=== PATIENT | male | born 1980 | race Caucasian/White ===

== ENCOUNTER 2017-06-01 18:44 | Emergency (ER) | payer SELFPAY ==
[2017-06-01 19:48] LABS: Urine Blood 1+ (NEG); Urine Glucose NEGATIVE (NEG); Urine Protein 1+ (NEG); Urine pH 7.5 (5.0-7.0)
[2017-06-01] MEDS ORDERED: KETOROLAC 30 MG/ML INJ ONE (19:48)
[2017-06-01] MEDS ORDERED: NA CHLORIDE 0.9% 1,000 ML ONE (19:48)
--- NOTE | 2017-06-01 20:25 | RAD REPORT ---
EXAM DESCRIPTION: CT - Stone Protocol - 06/01/2017 7:58 pm CLINICAL HISTORY: Abdominal pain, flank pain COMPARISON: None. TECHNIQUE: Axial 5 mm thick images were obtained without oral or IV contrast. The [id number] span s the entirety of the system including uppermost abdomen and lung bases. All CT scans are performed using dose optimization technique as appropriate and may include automated exposure control or mA/KV adjustment according to patient size. FINDINGS: No hydronephrosis is present and no obstructing ureteral calculi. No suspicious renal mass es. Isodense masses and pyelonephritis are not excluded on a stone protocol CT scan. Urinary bladder is mostly contracted. No bladder calculi seen. Prostate gland and seminal vesicles within normal limi ts. Imaged portions of the liver, spleen and pancreas show no suspicious findings on non-contrast imaging . The gallbladder is contracted. No biliary tree dilatation. No significant adrenal finding. No suspicious bowel findings. Appendix is normal. No mass or bulky lymphadenopathy. Fat only umbilical hernia is seen in the patient has fat only right inguinal hernia. No free air, free fluid or inflammatory stranding. No significant bony abnormality. IMPRESSION: No hydronephrosis, obstructing calculi or acute finding. Isodense masses and pyelonephritis are not excluded on stone protocol technique. Remainder the study shows no acute or suspicious finding.
[2017-06-01 20:33] LABS: Absolute Lymphocytes (CBC) 1.9 K/uL (0.7-4.9); Absolute Monocytes 0.8 K/uL (0.1-1.3); Absolute Neutrophil 6.7 K/uL (1.8-8.0); Basophils % 0.7 % (0-1.3); Eosinophils % 1.8 % (0-4.4); Hematocrit 44.1 % (39.6-49.0); Lymphocytes % 20.2 % (15.3-44.8); MCH 29.4 pg (27.0-35.0); MCV 85.5 fL (80-100); MPV 8.5 fL (7.6-11.3); Monocytes % 7.9 % (3.3-12.3); RBC Red Blood Cell Count 5.16 M/uL (4.33-5.43)
[2017-06-01 20:43] LABS: Potassium 3.5 mEq/L (3.6-5.0)
--- NOTE | 2017-06-01 20:50 | EDPHYS ---
Physician Documentation [facility] Name: Anthony Collado Age: 36 yrs Sex: Male : 1980 Arrival Date: 06/01/2017 Time: 18:46 Bed 17 Private MD: ED Physician Brendon Colorado HPI: 06/01 20:29 This 36 yrs old Male presents to ER via Ambulatory with complaints of Side gs Pain. 20:29 The patient complains of pain in the left mid back. The pain radiates to the abdomen. gs Onset: The symptoms/episode began/occurred acutely, just prior to arrival. Modifying factors: The symptoms are alleviated by nothing. the symptoms are aggravated by nothing. Associated signs and symptoms: Pertinent positives: nausea, Pertinent negatives: pain radiating to the lower extremities. Severity of pain: At its worst the pain was incapacitating in the emergency department the pain has improved markedly. The patient has not experienced similar symptoms in the past. Historical: - Allergies: 18:57 No Known Allergies; - Home Meds: 18:57 Adderall XR 20 mg Oral cp24 1 cap once daily [Active]; hj - PMHx: 18:57 ADD/ADHD; - PSHx: 18:57 zackery anal surgery; hj - Immunization history:: Adult Immunizations up to date. - Social history:: Smoking status: Patient/guardian denies using tobacco. ROS: 20:29 Cardiovascular: Negative for chest pain. gs 20:29 Respiratory: Negative for pleurisy, shortness of breath. 20:29 All other systems are negative. Exam: 20:29 Head/Face: Normocephalic, atraumatic. Eyes: Pupils equal round and reactive to light, gs extra-ocular motions intact. Lids and lashes normal. Conjunctiva and sclera are non-icteric and not injected. Cornea within normal limits. Periorbital areas with no swelling, redness, or edema. ENT: Nares patent. No nasal discharge, no septal abnormalities noted. Tympanic membranes are normal and external auditory canals are clear. Oropharynx with no redness, swelling, or masses, exudates, or evidence of obstruction, uvula midline. Mucous membranes moist. Neck: Trachea midline, no thyromegaly or masses palpated, and no cervical lymphadenopathy. Supple, full range of motion without nuchal rigidity, or vertebral point tenderness. No Meningismus. Chest/axilla: Normal chest wall appearance and motion. Nontender with no deformity. No lesions are appreciated. Cardiovascular: Regular rate and rhythm with a normal S1 and S2. No gallops, murmurs, or rubs. Normal PMI, no JVD. No pulse deficits. Respiratory: Lungs have equal breath sounds bilaterally, clear to auscultation and percussion. No rales, rhonchi or wheezes noted. No increased work of breathing, no retractions or nasal flaring. Abdomen/GI: Soft, non-tender, with normal bowel sounds. No distension or tympany. No guarding or rebound. No evidence of tenderness throughout. Back: No spinal tenderness. No costovertebral tenderness. Full range of motion. Skin: Warm, dry with normal turgor. Normal color with no rashes, no lesions, and no evidence of cellulitis. MS/ Extremity: Pulses equal, no cyanosis. Neurovascular intact. Full, normal range of motion. Neuro: Awake and alert, GCS 15, oriented to person, place, time, and situation. Cranial nerves II-XII grossly intact. Motor strength 5/5 in all extremities. Sensory grossly intact. Cerebellar exam normal. Normal gait. 20:29 Constitutional: The patient appears alert, awake. Vital Signs: 18:57 BP 137 / 88; Pulse 69; Resp 18; Temp 97.5(O); Pulse Ox 100% on R/A; Weight 81.65 kg; hj Height 5 ft. 10 in. (177.80 cm); Pain 10/10; 20:53 BP 121 / 81; Pulse 62; Resp 18 S; Pulse Ox 100% on R/A; ea 18:57 Body Mass Index 25.83 (81.65 kg, 177.80 cm) MDM: 19:42 Patient medically screened. gs 20:29 Differential diagnosis: nephrolithiasis, pyelonephritis, UTI. Data reviewed: vital gs signs, nurses notes, and as a result, I will. Response to treatment: the patient's symptoms have resolved after treatment, and as a result, I will discharge patient. 06/01 19:23 Order name: Urine Dipstick--Ancillary (enter results); Complete Time: 20:28 rg2 06/01 19:45 Order name: Basic Metabolic Panel; Complete Time: 20:50 gs 06/01 19:45 Order name: CBC with Diff; Complete Time: 20:50 06/01 19:45 Order name: CT Stone Protocol; Complete Time: 20:28 06/01 19:45 Order name: IV Saline Lock; Complete Time: 20:51 06/01 19:45 Order name: Labs collected and sent; Complete Time: 20:51 gs Administered Medications: 20:16 Drug: TORadol 15 mg Route: IVP; Site: right antecubital; ea 21:06 Follow up: Response: No adverse reaction; Pain is decreased ea 20:16 Drug: NS 0.9% 1000 ml Route: IV; Rate: 1 bolus; Site: right antecubital; ea 21:43 Follow up: Response: No adverse reaction; IV Intake: 1000ml ea 21:45 Follow up: Response: No adverse reaction; IV Status: Completed infusion; IV Intake: ea 1000ml Disposition: 06/01/17 20:49 Discharged to Home. Impression: Abdominal and pelvic pain, Hematuria. - Condition is Stable. - Discharge Instructions: Abdominal Pain, Adult, [id number]. - Medication Reconciliation Form, Thank You Letter, Antibiotic Education, Prescription Opioid Use form. - Follow up: Ham Titus MD; When: 5 - 6 days; Reason: Re-evaluation by your physician. Signatures: Dispatcher [employer] Hans Melgoza, RN Britni Clarke RN RN ea Starr, Gregory, MD MD
--- NOTE | 2017-06-01 20:50 | ER ---
Nurse's Notes [facility] Name: Anthony Collado Age: 36 yrs Sex: Male : 1980 Arrival Date: 06/01/2017 Time: 18:46 Bed 17 Private MD: Diagnosis: Abdominal and pelvic pain;Hematuria Presentation: 06/01 18:54 Presenting complaint: Patient states: about 30 mins ago, i have pain on my L lower side hj of my stomach, denies radiating pain; denies hx of kidney stones; denies nausea and vomiting; denies diarrhea; denies chest pain;. Transition of care: patient was not received from another setting of care. Onset of symptoms was June 01, 2017. Care prior to arrival: None. 18:54 Method Of Arrival: Ambulatory 18:54 Acuity: LAMBERTO 3 hj Triage Assessment: 18:57 General: Appears in no apparent distress. uncomfortable, Behavior is calm, cooperative, hj appropriate for age. Pain: Complains of pain in left upper quadrant. Historical: - Allergies: 18:57 No Known Allergies; hj - Home Meds: 18:57 Adderall XR 20 mg Oral cp24 1 cap once daily [Active]; hj - PMHx: 18:57 ADD/ADHD; hj - PSHx: 18:57 zackery anal surgery; hj - Immunization history:: Adult Immunizations up to date. - Social history:: Smoking status: Patient/guardian denies using tobacco. Screenin:30 Abuse screen: Denies threats or abuse. Nutritional screening: No deficits noted. la1 Tuberculosis screening: No symptoms or risk factors identified. Fall Risk None identified. Assessment: 19:27 General: Behavior is calm, cooperative, appropriate for age. General: Pt reports he had la1 excruciating pain to his left side and when he was in triage all of a sudden it went away. . Pain: Denies pain. Neuro: Level of Consciousness is awake, alert, obeys commands, Oriented to person, place, time, situation. Cardiovascular: Patient's skin is warm and dry. Respiratory: Airway is patent Respiratory effort is even, unlabored, Respiratory pattern is regular, symmetrical. GI: Abdomen is non-distended, Bowel sounds present X 4 quads. Abd is soft and non tender X 4 quads. : Denies burning with urination. EENT: No signs and/or symptoms were reported regarding the EENT system. Derm: Skin is pink, warm \T\ dry. Musculoskeletal: Range of motion: intact in all extremities. 20:53 Reassessment: Patient and/or family updated on plan of care and expected duration. Pain ea level reassessed. Patient is alert, oriented x 3, equal unlabored respirations, skin warm/dry/pink. 21:02 Reassessment: Patient and/or family updated on plan of care and expected duration. Pain ea level reassessed. Patient is alert, oriented x 3, equal unlabored respirations, skin warm/dry/pink. awaiting for fluids to complete. 21:44 Reassessment: Patient and/or family updated on plan of care and expected duration. Pain ea level reassessed. Patient is alert, oriented x 3, equal unlabored respirations, skin warm/dry/pink. Discharge instructions given to patient, verbalized the understanding of instruction. Vital Signs: 18:57 BP 137 / 88; Pulse 69; Resp 18; Temp 97.5(O); Pulse Ox 100% on R/A; Weight 81.65 kg; hj Height 5 ft. 10 in. (177.80 cm); Pain 10/10; 20:53 BP 121 / 81; Pulse 62; Resp 18 S; Pulse Ox 100% on R/A; ea 18:57 Body Mass Index 25.83 (81.65 kg, 177.80 cm) ED Course: 18:46 Patient arrived in ED. tw3 18:56 Triage completed. hj 18:57 Arm band placed on left wrist. hj 19:09 Brendon Colorado MD is Attending Physician. gs 19:11 Octavio Pace RN is Primary Nurse. la1 19:31 Patient has correct armband on for positive identification. ea 19:59 CT Stone Protocol In Process Unspecified. EDMS 20:33 Ham Titus MD is Referral Physician. gs 20:54 No provider procedures requiring assistance completed. ea 21:44 IV discontinued, intact, bleeding controlled, No redness/swelling at site. Pressure ea dressing applied. Administered Medications: 20:16 Drug: TORadol 15 mg Route: IVP; Site: right antecubital; ea 21:06 Follow up: Response: No adverse reaction; Pain is decreased ea 20:16 Drug: NS 0.9% 1000 ml Route: IV; Rate: 1 bolus; Site: right antecubital; ea 21:43 Follow up: Response: No adverse reaction; IV Intake: 1000ml ea 21:45 Follow up: Response: No adverse reaction; IV Status: Completed infusion; IV Intake: ea 1000ml Intake: 21:43 IV: 1000ml; Total: 1000ml. ea 21:45 IV: 1000ml; Total: 2000ml. ea Outcome: 20:49 Discharge ordered by . gs 21:43 Discharged to home ambulatory, with friend. ea 21:43 Condition: improved 21:43 Discharge instructions given to patient, Instructed on discharge instructions, follow up and referral plans. Demonstrated understanding of instructions, follow-up care. 21:45 Patient left the ED. ea Signatures: Dispatcher [employer] EDMS Octavio Pace RN RN la1 Hans Dalal RN RN Siobhan Lepe tw3 Britni Walsh RN RN Brendon Panda MD MD gs Corrections: (The following items were deleted from the chart) 19:00 18:57 Pulse 69bpm; Resp 18bpm; Pulse Ox 100% RA; Temp 97.5F Oral; 81.65 kg; Height 5 hj ft. 10 in.; BMI: 25.8; Pain 10/10; hj
== END 2017-06-01 21:45 | disposition home or self-care (01) ==
LOC: ER 18:44
DX: R31.9 Hematuria, unspecified (principal); F90.9 Attention-deficit hyperactivity disorder, unspecified type
CPT/HCPCS: 36415; 74176; 76377; 80048; 81003; 85025; 96361; 96374; 99283; J7030

== ENCOUNTER 2023-01-24 23:39 | Emergency (ER) | payer SELFPAY ==
--- OUTSIDE RECORDS SUMMARY | 2023-01-24 23:41 | XMS REPORT | Continuity of Care Document ---
Author Name Unknown Address [address] [facility] [address] [place] [address] [facility] Address [address] [place] [address] Care Team Providers Care Principal Statistical Scientist Name Role Phone Pcp, Patient Does Not Have A Primary Care Physic woo Piter Payton MD A Attending Clinician [phone] PITER PAYTON A Attending Clinician Unavaila ble Doctor Unassigned, [place] Attending Clinician U navailable Payers Payer Name Policy Type Policy Number Effective Date Expirati on Date Source Problems Condition Name Condition Details Condition Category Status Onset Date Resolution Date Last Treatment Date Treating Clinician Comments Source Tinea versicolor Tinea versicolor Disease Active 04-09 00:00: 00 [facility] Tinea pedis Tinea pedis Disease Active 04-09 00:00: 00 [facility] Mouth ulcers Mouth ulcers Disease Active 04-09 00:00: 00 [facility] BRBPR (bright red blood per rectum) BRBPR (bright red blood per rectum) Disease Active 04-09 00:00: 00 [facility] Hyperactiv ity Hyperactiv ity Disease Active 04-09 00:00: 00 [facility] Degenerati ve lumbar disc Degenerati ve lumbar disc Disease Active 04-07 00:00: 00 [facility] Difficulty concentrat ing Difficulty concentrat ing Disease Active 02-17 00:00: 00 Overview: Formattin g of this note might be different from the original. Never officiall y diagnosed with ADHD. Taking Adderall since 2013.04/07: Referred to Psychiatr y. [facility] Depression Depression Disease Active [place]: Formattin g of this note might be different from the original. Battled depressio n off and on whole life. [facility] Allergies, Adverse Reactions, Alerts Allergy Name Allergy Type Status Severity Reaction(s) Onset Date Inactive Date Treating Clinician Comments Source NO KNOWN ALLERGIE S Drug Class Active [facility] Social History Social Habit Start Date Stop Date Quantity Comments [facility] current (pack per day) - Reported 2020-04-09 00:00:00 2020-04-09 00:00:00 [facility] Cigarette pack-years 2020-04-09 00:00:00 2020-04-09 00:00:00 [facility] Tobacco use and exposure 2020-04-09 00:00:00 2020-04-09 00:00:00 Never used [facility] Alcohol intake 2020-04-09 00:00:00 2020-04-09 00:00:00 Ex-drinker (finding) [facility] Exposure to SARS-CoV-2 (event) 2020-03-08 00:00:00 2020-04-07 13:50:00 Not sure [facility] Alcohol Comment 2020-04-07 00:00:00 2020-04-07 00:00:00 I drink on occasion but not enough to measure weekly [facility] History of Social function 2020-04-07 00:00:00 2020-04-07 00:00:00 [facility] History of tobacco use 1994-09-17 00:00:00 2012-07-18 00:00:00 Cigarette Smoker [facility] Sex Assigned At 1980 00:00:00 1980 00:00:00 [facility] Smoking Status Start Date Stop Date Source Tobacco smoking consumption unknown [facility] Former smoker 2020-04-09 00:00:00 2020-04-09 00:00:00 [facility] Medications Ordered Medication Name Filled Medication Name Start Date Stop Date Current Medication? Ordering Clinician Indication Dosage Frequency Signature (SIG) Comments Components Source econazole nitrate 1 % cream 04-07 00:00: 00 Yes [id number] Apply to area(s) 2 (two) times daily. [facility] econazole nitrate 1 % cream 04-07 00:00: 00 Yes [id number] Apply to area(s) 2 (two) times daily. [facility] econazole nitrate 1 % cream 04-07 00:00: 00 Yes [id number] Apply to area(s) 2 (two) times daily. [facility] dextroamphe tamine-amph etamine (ADDERALL) 30 mg tablet 02-17 00:00: 00 Yes [facility] dextroamphe tamine-amph etamine (ADDERALL) 30 mg tablet 02-17 00:00: 00 Yes [facility] dextroamphe tamine-amph etamine (ADDERALL) 30 mg tablet 02-17 00:00: 00 Yes [facility] Vital Signs Vital Name Observation Time Observation Value Comments S ource Systolic blood pressure 2020-04-07 19:56:00 110 mm[Hg] [facility] Diastolic blood pressure 2020-04-07 19:56:00 80 mm[Hg] [facility] Heart rate 2020-04-07 19:56:00 102 /min [facility] Body temperature 2020-04-07 19:56:00 37.11 Jesi [facility] Body height 2020-04-07 19:56:00 177.8 cm [facility] Body weight 2020-04-07 19:56:00 90.447 kg [facility] BMI 2020-04-07 19:56:00 28.61 kg/m2 [facility] Procedures Procedure Date / Time Performed Performing Clinicia n Source HSV 1&2, VZV BY PCR 2020-04-07 21:04:00 Sunil Payton [facility] Encounters Start Date/Time End Date/Time Encounter Type Admission Type Attending Clinicians Care Facility Care Department Encounter ID Source 2020-04-07 13:38:13 2020-04-07 15:03:04 Office Visit Piter Payton [facility] Office [address] [id number] [facility] 2020-04-07 13:30:00 2020-04-07 13:30:00 Outpatient R PITER PAYTON [facility] [id number] [facility] 2020-03-07 00:00:00 2020-03-07 00:00:00 Patient Secure Msg Doctor Unassigned, [place] [facility] [id number] [facility] Results Test Description Test Time Test Comments Results Result Co mments Source [facility] VZV BY [id number] 18:55:00* Test Item Value Reference Range Interpretation Comme nts Herpes simplex virus type 1 Nucleic Acid (test code = 8372830615) Negative Negative Herpes simplex virus type 2 Nucleic Acid (test code = 3357680798) Negative Negative Varicella zoster virus Nucle ic Acid (test code = 02495-5) Negative Negative Lab Interpretation (test cod e = 43195-8) Normal [facility], VZV BY [id number] 18:55:00* Test Item Value Reference Range Interpretation Comme nts Herpes simplex virus type 1 Nucleic Acid (test code = 9084638605) Negative Negative Herpes simplex virus type 2 Nucleic Acid (test code = 4364572233) Negative Negative Varicella zoster virus Nucle ic Acid (test code = 42202-1) Negative Negative Lab Interpretation (test cod e = 67534-8) Normal [facility]
[2023-01-25] MEDS ORDERED: DIAZEPAM 5 MG TABLET ONE (00:43)
[2023-01-25] MEDS ORDERED: dexAMETHasone 10 MG/ML VIAL ONE (00:44)
[2023-01-25] MEDS ORDERED: ONDANSETRON 4 MG/2 ML VIAL ONE (00:44)
[2023-01-25] MEDS ORDERED: KETOROLAC 30 MG/ML INJ ONE (00:44)
[2023-01-25] MEDS ORDERED: NA CHLORIDE 0.9% 1,000 ML ONE (00:44)
[2023-01-25] MEDS ORDERED: MORPHINE 4 MG/ML SYR ONE (00:44)
[2023-01-25 00:49] LABS: Absolute Lymphocytes (CBC) 1.9 K/uL (0.7-4.9); Hematocrit 47.9 % (39.6-49.0); Lymphocytes % 14.3 % (15.3-44.8); MCV 86.2 fL (80-100); MPV 8.7 fL (7.6-11.3); Platelets 324 thou/uL (152-406); RBC Red Blood Cell Count 5.55 M/uL (4.33-5.43)
[2023-01-25 01:05] LABS: Albumin 4.1 g/dL (3.4-5.0); Bilirubin Total 2.2 mg/dL (0.2-1.0); Potassium 3.7 mEq/L (3.5-5.1); Protein, Total 8.3 g/dL (6.4-8.2)
[2023-01-25 01:46] LABS: Specific Gravity > 1.030 (1.005-1.030); Urine Bacteria None Seen /HPF (<20); Urine Bilirubin NEGATIVE (Negative); Urine Blood Negative (Negative); Urine Clarity Clear (Clear); Urine Color Yellow (Yellow); Urine Glucose NEGATIVE (Negative); Urine Mucus Slight /HPF (None Seen); Urine Protein 1+ (Negative); Urine RBC <5 /HPF (None Seen); Urine Urobilinogen Normal (Normal); Urine pH 5.5 (5.0-7.0)
--- NOTE | 2023-01-25 01:57 | EDPHYS ---
Physician Documentation [facility] Name: Anthony Collado Age: 42 yrs Sex: Male : 1980 Arrival Date: 01/24/2023 Time: 23:39 Bed 11 Private MD: ED Physician Massimo Ramos HPI: 01/25 00:54 This 42 yrs old Male presents to ER via EMS with complaints of Back Pain, Leg gisela Pain. 00:54 The patient presents with pain that is acute, and decreased range of motion. The gisela symptoms are located in the low back, lumbar area, left low back and right low back. Onset: The symptoms/episode began/occurred 3 day(s) ago. The pain radiates to the lumbar area, left low back and right low back. Associated signs and symptoms: The patient has no apparent associated signs or symptoms. The problem was sustained when lifting SNEEZED. Modifying factors: The patient symptoms are alleviated by remaining still, the patient symptoms are aggravated by any movement, bending, movement. Severity of symptoms: At their worst the symptoms were moderate, severe, in the emergency department the symptoms are unchanged. The patient has experienced similar episodes in the past, multiple times. Historical: - Allergies: 01/24 23:47 No Known Allergies; pf1 - PMHx: 23:47 ADD/ADHD; Chronic back pain; degenerative disc disease; pf1 - PSHx: 23:47 None; pf1 - Immunization history:: Adult Immunizations not up to date, Client reports having NOT received the Covid vaccine. Last tetanus immunization: > 10 years ago Flu vaccine is not up to date. - Social history:: Smoking status: Reported history of juuling and/or vaping. Patient uses alcohol, but reports only rare drinking. street drugs, marijuana. - Family history:: not pertinent. ROS: 01/25 00:54 Constitutional: Negative for fever, chills, and weight loss, Eyes: Negative for injury, gisela pain, redness, and discharge, ENT: Negative for injury, pain, and discharge, Neck: Negative for injury, pain, and swelling, Cardiovascular: Negative for chest pain, palpitations, and edema, Respiratory: Negative for shortness of breath, cough, wheezing, and pleuritic chest pain, Abdomen/GI: Negative for abdominal pain, nausea, vomiting, diarrhea, and constipation, Back: Negative for injury and pain, : Negative for injury, bleeding, discharge, and swelling, MS/Extremity: Negative for injury and deformity, Skin: Negative for injury, rash, and discoloration, Psych: Negative for depression, anxiety, suicide ideation, homicidal ideation, and hallucinations, Allergy/Immunology: Negative for hives, rash, and allergies, Endocrine: Negative for neck swelling, polydipsia, polyuria, polyphagia, and marked weight changes, Hematologic/Lymphatic: Negative for swollen nodes, abnormal bleeding, and unusual bruising, Neuro: Positive for gait disturbance, Exam: 00:54 Constitutional: This is a well developed, well nourished patient who is awake, alert, gisela and in no acute distress. Head/Face: Normocephalic, atraumatic. Eyes: Pupils equal round and reactive to light, extra-ocular motions intact. Lids and lashes normal. Conjunctiva and sclera are non-icteric and not injected. Cornea within normal limits. Periorbital areas with no swelling, redness, or edema. ENT: Nares patent. No nasal discharge, no septal abnormalities noted. Tympanic membranes are normal and external auditory canals are clear. Oropharynx with no redness, swelling, or masses, exudates, or evidence of obstruction, uvula midline. Mucous membranes moist. Neck: Trachea midline, no thyromegaly or masses palpated, and no cervical lymphadenopathy. Supple, full range of motion without nuchal rigidity, or vertebral point tenderness. No Meningismus. Chest/axilla: Normal chest wall appearance and motion. Nontender with no deformity. No lesions are appreciated. Cardiovascular: Regular rate and rhythm with a normal S1 and S2. No gallops, murmurs, or rubs. Normal PMI, no JVD. No pulse deficits. Respiratory: Lungs have equal breath sounds bilaterally, clear to auscultation and percussion. No rales, rhonchi or wheezes noted. No increased work of breathing, no retractions or nasal flaring. Abdomen/GI: Soft, non-tender, with normal bowel sounds. No distension or tympany. No guarding or rebound. No evidence of tenderness throughout. Male : Normal genitalia with no discharge or lesions. Skin: Warm, dry with normal turgor. Normal color with no rashes, no lesions, and no evidence of cellulitis. MS/ Extremity: Pulses equal, no cyanosis. Neurovascular intact. Full, normal range of motion. Neuro: Awake and alert, GCS 15, oriented to person, place, time, and situation. Cranial nerves II-XII grossly intact. Motor strength 5/5 in all extremities. Sensory grossly intact. Cerebellar exam normal. Normal gait. Psych: Awake, alert, with orientation to person, place and time. Behavior, mood, and affect are within normal limits. 00:54 Back: pain, that is moderate, ROM is painful, normal spinal alignment noted, no deformity, CVA tenderness, is absent, muscle spasm, is appreciated in the left low back, left mid back, right mid back and right low back, Vital Signs: 01/24 23:42 BP 141 / 99; Pulse 56; Resp 16; Temp 97.3; Pulse Ox 100% on R/A; Weight 86.18 kg; pf1 Height 5 ft. 10 in. ; Pain 3/10; 01/25 00:30 BP 115 / 81; Pulse 62; Resp 16; Pulse Ox 100% on R/A; pf1 01:30 BP 111 / 73; Pulse 59; Resp 16; Pulse Ox 99% ; pf1 01/24 23:42 Body Mass Index 27.26 (86.18 kg, 177.8 cm) pf1 01/24 23:42 Pain Scale: Adult pf1 MDM: 01/24 23:55 Patient medically screened. gisela 01/25 00:58 Differential diagnosis: Fatigue Fracture Hydronephrosis Osteomyelitis Osteoporosis gisela Perforated Ulcer Pyelonephritis Renal Infarction sickle cell crisis, spinal injury, sprain, Ureterolithiasis vertebral fracture. Data reviewed: vital signs, nurses notes, lab test result(s), radiologic studies, CT scan. Consideration of Admission/Observation Escalation of care including admission/observation considered. I considered the following discharge prescriptions or medication management in the emergency department Medications were administered in the Emergency Department. See MAR. Independent interpretation of the following test(s) in the Emergency Department CT Scan: My interpretation is CT LUMBAR. Test considered but Not performed: MRI: NO MRI SPINE. Care significantly affected by the following chronic conditions: ADD, BACK PAIN. Counseling: I had a detailed discussion with the patient and/or guardian regarding the historical points, exam findings, and any diagnostic results supporting the discharge/admit diagnosis, lab results, radiology results, the need for outpatient follow up, for definitive care, a family practitioner, a neurologist. 01/24 23:57 Order name: CBC with Diff [facility] 01/24 23:57 Order name: Comprehensive Metabolic Panel [facility] 01/24 23:57 Order name: Urinalysis w/ reflexes [facility] 01/24 23:57 Order name: CT Lumbar Spine Wo Con gisela Administered Medications: 00:46 Drug: Decadron - Dexamethasone IVP 10 mg IVP once Route: IVP; Site: right forearm; pf1 01:40 Follow up: Response: No adverse reaction; Marked relief of symptoms pf1 00:47 Drug: Ketorolac IVP 30 mg IVP once Route: IVP; Site: right forearm; pf1 01:40 Follow up: Response: No adverse reaction; Marked relief of symptoms; Pain is decreased pf1 00:47 Drug: Diazepam PO 10 mg PO once Route: PO; pf1 01:40 Follow up: Response: No adverse reaction; Marked relief of symptoms pf1 00:47 Drug: morphine IVP or IV 4 mg IVP once over 4 mins Route: IVP; Infused Over: 4 mins; pf1 Site: right forearm; 01:40 Follow up: Response: No adverse reaction; Marked relief of symptoms; Pain is decreased; pf1 RASS: Alert and Calm (0) 00:47 Drug: Ondansetron IVP 4 mg IVP once; over 2 minutes Route: IVP; Site: right forearm; pf1 01:40 Follow up: Response: No adverse reaction; Marked relief of symptoms pf1 00:48 Drug: NS 0.9% IV 1000 ml IV at 1 bolus Per protocol; 1000 mL bolus Route: IV; Rate: 1 pf1 bolus; Site: right forearm; 01:40 Follow up: Response: No adverse reaction; Marked relief of symptoms; IV Status: pf1 Completed infusion; IV Intake: 1000ml Disposition Summary: 01/25/23 01:56 Discharge Ordered Notes: Location: Home gisela Problem: new gisela Symptoms: have improved gisela Condition: Stable gisela Diagnosis - Low back pain gisela - Sciatica gisela - Sciatica, left side gisela - Other intervertebral disc displacement, lumbar region - LARGE POSTERIOR DISC gisela EXTRUSION, L4-5, MODERATER CANAL NARROWING Followup: gisela - With: Private Physician - When: 2 - 3 days - Reason: Recheck today's complaints, Continuance of care, Re-evaluation by your physician Followup: gisela - With: Lee Plaza MD - When: 2 - 3 days - Reason: Recheck today's complaints, Re-evaluation by your physician Followup: [facility] - With: Cory Goetz MD - When: 2 - 3 days - Reason: Recheck today's complaints, Re-evaluation by your physician Discharge Instructions: - Discharge Summary Sheet gisela - Acute Back Pain, Adult gisela - Chronic Back Pain gisela - Herniated Disk gisela - Musculoskeletal Pain gisela - Sciatica gisela - Chronic Back Pain, [id number] gisela - Sciatica, [id number] [facility] Forms: - Medication Reconciliation Form [facility] - Thank You Letter [facility] - Antibiotic Education [facility] - Prescription Opioid Use [facility] - Patient Portal Instructions [facility] - Leadership Thank You Letter [facility] Prescriptions: - acetaminophen-codeine 300-30 mg Oral tablet - take 2 tablet ORAL route every 6 hours; 20 tablet; Refills: 0, Product [facility] Selection Permitted - dexamethasone 2 mg Oral tablet - take 1 tablet ORAL route every 12 hours; 10 tablet; Refills: 0, Product [facility] Selection Permitted - Diclofenac Sodium 75 mg Oral tablet, delayed release (enteric coated) - take 1 tablet ORAL route 2 times per day; 20 tablet; Refills: 0, Product [facility] Selection Permitted - Cyclobenzaprine 5 mg Oral Tablet - take 1 tablet ORAL route 3 times per day As needed; 15 tablet; Refills: 0, [facility] Product Selection Permitted Signatures: Dispatcher [employer] Massimo Lopez MD MD cha Finley, Pamala, RN RN pf1
--- NOTE | 2023-01-25 01:57 | ER ---
Nurse's Notes [facility] Name: Anthony Collado Age: 42 yrs Sex: Male : 1980 Arrival Date: 01/24/2023 Time: 23:39 Bed 11 Private MD: Diagnosis: Low back pain;Sciatica;Sciatica, left side;Other intervertebral disc displacement, lumbar region-LARGE POSTERIOR DISC EXTRUSION, L4-5, MODERATER CANAL NARROWING Presentation: 01/24 23:42 Chief complaint: Patient states: back pain with left leg pain of 3 at this time,onset pf1 Friday after sneezing. Patient stated chronic back pain with DDD, follows up with chiropractor every 2 weeks after picking up a potted plant in May 2022. Coronavirus screen: Vaccine status: Patient reports being unvaccinated. Client denies travel out of the [place] in the last 14 days. At this time, the client does not indicate any symptoms associated with coronavirus-19. Ebola Screen: Patient negative for fever greater than or equal to 101.5 degrees Fahrenheit, and additional compatible Ebola Virus Disease symptoms. Initial Sepsis Screen: Does the patient meet any 2 criteria? No. Patient's initial sepsis screen is negative. Does the patient have a suspected source of infection? No. Patient's initial sepsis screen is negative. Risk Assessment: Do you want to hurt yourself or someone else? Patient reports no desire to harm self or others. 23:42 Method Of Arrival: EMS: [facility] pf1 23:42 Acuity: LAMBERTO 3 pf1 Historical: - Allergies: 23:47 No Known Allergies; pf1 - PMHx: 23:47 ADD/ADHD; Chronic back pain; degenerative disc disease; pf1 - PSHx: 23:47 None; pf1 - Immunization history:: Adult Immunizations not up to date, Client reports having NOT received the Covid vaccine. Last tetanus immunization: > 10 years ago Flu vaccine is not up to date. - Social history:: Smoking status: Reported history of juuling and/or vaping. Patient uses alcohol, but reports only rare drinking. street drugs, marijuana. - Family history:: not pertinent. Screenin/09 01:59 [facility] ED Fall Risk Assessment (Adult) History of falling in the last 3 months, pf1 including since admission No falls in past 3 months (0 pts) Confusion or Disorientation No (0 pts) Intoxicated or Sedated No (0 pts) Impaired Gait Yes (1 pt) Mobility Assist Device Used No (0 pt) Altered Elimination No (0 pt) Score/Fall Risk Level 0 - 2 = Low Risk Oriented to surroundings, Maintained a safe environment, Educated pt \T\ family on fall prevention, incl call for assistance when getting out of bed, Assessed \T\ reinforced patient's understanding of fall precautions, Provided non-skid footwear, Hourly rounding (assess needs \T\ fall precautionary measures) done, Used ambulatory aids as needed (educated on \T\ assisted with), Used gait belt as appropriate. Abuse screen: Denies threats or abuse. Nutritional screening: No deficits noted. Tuberculosis screening: No symptoms or risk factors identified. Assessment: 01/24 23:45 General: Appears in no apparent distress. uncomfortable, well groomed, well developed, pf1 Behavior is calm, cooperative, appropriate for age, quiet. 23:45 Pain: Complains of pain in lumbar area and left leg Pain currently is 3 out of 10 on a pf1 pain scale. Neuro: No deficits noted. Level of Consciousness is awake, alert, obeys commands, Oriented to person, place, time, situation. Cardiovascular: No deficits noted. Capillary refill < 3 seconds Patient's skin is warm and dry. Respiratory: No deficits noted. Airway is patent Respiratory effort is even, unlabored, Respiratory pattern is regular, symmetrical. GI: No deficits noted. No signs and/or symptoms were reported involving the gastrointestinal system. : No deficits noted. No signs and/or symptoms were reported regarding the genitourinary system. EENT: No deficits noted. No signs and/or symptoms were reported regarding the EENT system. Derm: No deficits noted. No signs and/or symptoms reported regarding the dermatologic system. Musculoskeletal: Circulation, motion, and sensation intact. Capillary refill < 3 seconds, Range of motion: intact in all extremities, Reports pain in lumbar area and left leg. 01/25 00:30 Reassessment: Patient appears in no apparent distress at this time. Patient and/or pf1 family updated on plan of care and expected duration. Pain level reassessed. Patient is alert, oriented x 3, equal unlabored respirations, skin warm/dry/pink. Patient states symptoms have improved. 01:30 Reassessment: Patient appears in no apparent distress at this time. Patient and/or pf1 family updated on plan of care and expected duration. Pain level reassessed. Patient is alert, oriented x 3, equal unlabored respirations, skin warm/dry/pink. Patient states feeling better. Patient states symptoms have improved. Vital Signs: 01/24 23:42 BP 141 / 99; Pulse 56; Resp 16; Temp 97.3; Pulse Ox 100% on R/A; Weight 86.18 kg; pf1 Height 5 ft. 10 in. ; Pain 3/10; 01/25 00:30 BP 115 / 81; Pulse 62; Resp 16; Pulse Ox 100% on R/A; pf1 01:30 BP 111 / 73; Pulse 59; Resp 16; Pulse Ox 99% ; pf1 01/24 23:42 Body Mass Index 27.26 (86.18 kg, 177.8 cm) pf1 01/24 23:42 Pain Scale: Adult pf1 ED Course: 01/24 23:41 Patient arrived in ED. pf1 23:45 Arm band placed on left wrist. pf1 23:47 Triage completed. pf1 23:55 Massimo Ramos MD is Attending Physician. gisela 01/25 00:25 Inserted saline lock: 20 gauge in right forearm, using aseptic technique. Blood ls5 collected. 00:53 CT Lumbar Spine Wo Con In Process Unspecified. EDMS 01:25 Urinalysis w/ reflexes Sent. pf1 01:53 Lee Plaza MD is Referral Physician. gisela 01:56 Cory Goetz MD is Referral Physician. gisela 01:59 Patient has correct armband on for positive identification. Bed in low position. Call pf1 light in reach. 02:10 No provider procedures requiring assistance completed. IV discontinued, intact, pf1 bleeding controlled, No redness/swelling at site. Pressure dressing applied. 02:10 Provided Education on: prescription and follow up. pf1 Administered Medications: 00:46 Drug: Decadron - Dexamethasone IVP 10 mg IVP once Route: IVP; Site: right forearm; pf1 01:40 Follow up: Response: No adverse reaction; Marked relief of symptoms pf1 00:47 Drug: Ketorolac IVP 30 mg IVP once Route: IVP; Site: right forearm; pf1 01:40 Follow up: Response: No adverse reaction; Marked relief of symptoms; Pain is decreased pf1 00:47 Drug: Diazepam PO 10 mg PO once Route: PO; pf1 01:40 Follow up: Response: No adverse reaction; Marked relief of symptoms pf1 00:47 Drug: morphine IVP or IV 4 mg IVP once over 4 mins Route: IVP; Infused Over: 4 mins; pf1 Site: right forearm; 01:40 Follow up: Response: No adverse reaction; Marked relief of symptoms; Pain is decreased; pf1 RASS: Alert and Calm (0) 00:47 Drug: Ondansetron IVP 4 mg IVP once; over 2 minutes Route: IVP; Site: right forearm; pf1 01:40 Follow up: Response: No adverse reaction; Marked relief of symptoms pf1 00:48 Drug: NS 0.9% IV 1000 ml IV at 1 bolus Per protocol; 1000 mL bolus Route: IV; Rate: 1 pf1 bolus; Site: right forearm; 01:40 Follow up: Response: No adverse reaction; Marked relief of symptoms; IV Status: pf1 Completed infusion; IV Intake: 1000ml Medication: 02:10 VIS not applicable for this client. pf1 Intake: 01:40 IV: 1000ml; Total: 1000ml. pf1 Outcome: 01:56 Discharge ordered by MD. higgins 02:10 Discharged to home via wheelchair, with family, pf1 02:10 Condition: improved 02:10 Discharge instructions given to patient, Instructed on discharge instructions, follow up and referral plans. Demonstrated understanding of instructions, follow-up care, medications, Prescriptions given X 4, 02:10 Patient left the ED. pf1 Signatures: Dispatcher [employer] EDMassimo Moreau MD MD cha Finley, Pamala, RN RN pf1 Scott Red ls5 Corrections: (The following items were deleted from the chart) 02:59 02:18 Patient left the ED. pf1 pf1
[2023-01-25 02:51] VITALS: BP 141/99; TEMP 97.3; O2SAT 100
--- NOTE | 2023-01-27 15:22 | RAD REPORT ---
EXAM DESCRIPTION: CT - Spine Lumbar Wo Con - 01/25/2023 7:23 am CLINICAL HISTORY: Pain;Radiculopathy. COMPARISON: None. TECHNIQUE: CT of the lumbar spine was performed without IV contrast. Axial, coronal, and sagittal re constructions were created and sent to PACS. This exam was performed according to our departmental dose-optimization program, which includes autom ated exposure control, adjustment of the mA and/or kV according to patient size and/or use of iterati ve reconstruction technique. FINDINGS: Bones: No acute osseous abnormality identified. Vertebral body height and alignment is keren ntained. T12-L1: No significant central canal or neuroforaminal stenosis identified. L1-L2: No significant central canal or neuroforaminal stenosis identified. L2-L3: Mild circumferential disc bulge. No significant central canal or neuroforaminal stenosis ident ified. L3-L4: Moderate circumferential disc bulge. Mild bilateral neuroforaminal narrowing due to disc mater ial. No significant central canal stenosis identified. L4-L5: Suspected large posterior disc extrusion in the left para midline region, measuring 1.9 cm in craniocaudal extent. Suspected moderate central canal narrowing at this level. Suspected underlying c ircumferential disc bulge. Moderate left sided and mild right sided neuroforaminal narrowing due to d isc material. L5-S1: Small posterior osteophytes. Prominent circumferential disc bulge. Moderate bilateral neural f oraminal narrowing due to vertebral body osteophytes. No significant central canal stenosis identifie d. Paraspinal soft tissues: No significant abnormality is visualized. IMPRESSION: 1. No acute osseous abnormality identified in the lumbar spine. 2. Suspected large posterior disc extrusion at L4-5 resulting in moderate central canal narrowing. 3. Suspected background circumferential disc bulge at L4-5, with moderate left-sided and mild right -sided neuroforaminal narrowing at this level. 4. Additional multilevel degenerative changes. 5. MRI is more sensitive for evaluation of soft tissue structures and can be obtained if necessary. Electronically signed by: Ester Laurent MD 01/25/2023 01:01 AM MEDICAL CARE EVALUATION SPECIALIST Due to temporary technical issues with the PACS/Fluency reporting system, reports are being signed by the in house radiologist without review as a courtesy to ensure prompt reporting. The interpreting r adiologist is fully responsible for the content of the report.
== END 2023-01-25 02:18 | disposition home or self-care (01) ==
LOC: ER 23:39
DX: M51.16 Intervertebral disc disorders with radiculopathy, lumbar region (principal); M48.061 Spinal stenosis, lumbar region without neurogenic claudication; G89.29 Other chronic pain
CPT/HCPCS: 36415; 72131; 80053; 81001; 85025; 96361; 96374; 96375; 99284; J1100; J2405; J7030

== ENCOUNTER 2023-01-30 16:55 | Emergency (ER) | payer SELFPAY ==
--- OUTSIDE RECORDS SUMMARY | 2023-01-30 16:58 | XMS REPORT | Continuity of Care Document ---
Author Name Unknown Address [address] [facility] [address] [place] [address] [facility] thconnect Address [address] [facility] [place] [address] Care Team Providers Care Photo Lab Manager Name Role Phone Pcp, Patient Does Not Have A Primary Care Physic woo Piter Payton MD A Attending Clinician + [phone] PITER PAYTON Attending Clinician Unavaila ble Doctor Unassigned, [place] Attending Clinician U navailable Payers Payer Name Policy Type Policy Number Effective Date Expirati on Date Source Problems Condition Name Condition Details Condition Category Status Onset Date Resolution Date Last Treatment Date Treating Clinician Comments Source Tinea versicolor Tinea versicolor Disease Active 04-09 00:00: 00 [facility] Tinea pedis Tinea pedis Disease Active 04-09 00:00: 00 [facility] Mouth ulcers Mouth ulcers Disease Active 04-09 00:00: 00 [facility] BRBPR (bright red blood per rectum) BRBPR (bright red blood per rectum) Disease Active 04-09 00:00: 00 [facility] Hyperactiv ity Hyperactiv ity Disease Active 04-09 00:00: 00 [facility] Degenerati ve lumbar disc Degenerati ve lumbar disc Disease Active 04-07 00:00: 00 [facility] Difficulty concentrat ing Difficulty concentrat ing Disease Active 02-17 00:00: 00 Overview: Formattin g of this note might be different from the original. Never officiall y diagnosed with ADHD. Taking Adderall since 2013.04/07: Referred to Psychiatr y. [facility] Depression Depression Disease Active [place]: Formattin g of this note might be different from the original. Battled depressio n off and on whole life. [facility] Allergies, Adverse Reactions, Alerts Allergy Name Allergy Type Status Severity Reaction(s) Onset Date Inactive Date Treating Clinician Comments Source NO KNOWN ALLERGIE S Drug Class Active [facility] Social History Social Habit Start Date Stop Date Quantity Comments Source [facility]ig[facility] smoked current (pack per day) - Reported 2020-04-09 00:00:00 2020-04-09 00:00:00 [facility] Cigarette pack-years 2020-04-09 00:00:00 2020-04-09 00:00:00 [facility] Tobacco use and exposure 2020-04-09 00:00:00 2020-04-09 00:00:[address] [facility] Alcohol intake 2020-04-09 00:00:00 2020-04-09 00:00:00 Ex-drinker (finding) [facility] Exposure to SARS-CoV-2 (event) 2020-03-08 00:00:00 2020-04-07 13:50:[address] [facility] Alcohol Comment 2020-04-07 00:00:00 2020-04-07 00:00:00 I drink on occasion but not enough to measure weekly [facility] History of Social function 2020-04-07 00:00:00 2020-04-07 00:00:00 [facility] History of tobacco use 1994-09-17 00:00:00 2012-07-18 00:00:[address] [facility] Sex Assigned At 1980 00:00:00 1980 00:00:00 [facility] Smoking Status Start Date Stop Date Source Tobacco smoking consumption unknown [facility] Former smoker 2020-04-09 00:00:00 2020-04-09 00:00:00 [facility] Medications Ordered Medication Name Filled Medication Name Start Date Stop Date Current Medication? Ordering Clinician Indication Dosage Frequency Signature (SIG) Comments Components Source econazole nitrate 1 % cream 04-07 00:00: 00 Yes [id number] Apply to area(s) 2 (two) times daily. [facility] econazole nitrate 1 % cream 04-07 00:00: 00 Yes [id number] Apply to area(s) 2 (two) times daily. [facility] econazole nitrate 1 % cream 04-07 00:00: 00 Yes [id number] Apply to area(s) 2 (two) times daily. [facility] dextroamphe tamine-amph etamine (ADDERALL) 30 mg tablet 02-17 00:00: 00 Yes [facility] dextroamphe tamine-amph etamine (ADDERALL) 30 mg tablet 02-17 00:00: 00 Yes [facility] dextroamphe tamine-amph etamine (ADDERALL) 30 mg tablet 02-17 00:00: 00 Yes [facility] Vital Signs Vital Name Observation Time Observation Value Comments S ource Systolic blood pressure 2020-04-07 19:56:00 110 mm[Hg] [facility] Diastolic blood pressure 2020-04-07 19:56:00 80 mm[Hg] [facility] Heart rate 2020-04-07 19:56:00 102 /min [facility] Body temperature 2020-04-07 19:56:[address] [facility] Body height 2020-04-07 19:56:00 177.8 cm [facility] Body weight 2020-04-07 19:56:00 90.447 kg [facility] BMI 2020-04-07 19:56:00 28.61 kg/m2 [facility] Procedures Procedure Date / Time Performed Performing Clinicia n Source HSV 1&2, VZV BY PCR 2020-04-07 21:04:[address] [facility] Encounters Start Date/Time End Date/Time Encounter Type Admission Type Attending Clinicians Care Facility Care Department Encounter ID Source 2020-04-07 13:38:13 2020-04-07 15:03:04 [facility] [id number] [facility] 2020-04-07 13:30:00 2020-04-07 13:30:00 Outpatient R PITER PAYTON [facility] [id number] [facility] 2020-03-07 00:00:00 2020-03-07 00:00:00 Patient Secure Msg Doctor Unassigned, [place] [facility] [id number] [facility] Results Test Description Test Time Test Comments Results Result Co mments Source [facility], VZV BY [id number] 18:55:00* Test Item Value Reference Range Interpretation Comme nts Herpes simplex virus type 1 Nucleic Acid (test code = 7257980496) Negative Negative Herpes simplex virus type 2 Nucleic Acid (test code = 4285366860) Negative Negative Varicella zoster virus Nucle ic Acid (test code = 88630-2) Negative Negative Lab Interpretation (test cod e = 07354-8) Normal [facility]2, VZV BY [id number] 18:55:00* Test Item Value Reference Range Interpretation Comme nts Herpes simplex virus type 1 Nucleic Acid (test code = 4780001997) Negative Negative Herpes simplex virus type 2 Nucleic Acid (test code = 7064815875) Negative Negative Varicella zoster virus Nucle ic Acid (test code = 35394-2) Negative Negative Lab Interpretation (test cod e = 36465-9) Normal [facility]
--- NOTE | 2023-01-30 17:30 | EDPHYS ---
Physician Documentation [facility] Name: Anthony Collado Age: 42 yrs Sex: Male : 1980 Arrival Date: 01/30/2023 Time: 16:55 Bed 17 Private MD: ED Physician Massimo Ramos HPI: 01/30 17:11 This 42 yrs old Male presents to ER via Unassigned with complaints of Low gisela Back Pain. 17:11 The patient presents with pain that is acute, and decreased range of motion. The gisela symptoms are located in the low back. The pain radiates to the lumbar area. The problem was sustained when lifting. Onset: The symptoms/episode began/occurred 3 day(s) ago. Modifying factors: The patient symptoms are alleviated by remaining still, the patient symptoms are aggravated by any movement, walking. Associated signs and symptoms: Pertinent positives: numbness. Severity of symptoms: At their worst the symptoms were severe, in the emergency department the symptoms have improved, mildly. The patient has experienced similar episodes in the past, a few times. Historical: - Allergies: 17:20 No Known Allergies; bp - Home Meds: 17:20 Adderall XR 20 mg Oral cp24 1 cap once daily [Active]; bp - PMHx: 17:20 ADD/ADHD; chronic back pain; Degenerative disc disease; bp - Immunization history:: Adult Immunizations up to date. - Social history:: Smoking status: Patient denies any tobacco usage or history of. - Family history:: not pertinent. ROS: 17:11 Constitutional: Negative for fever, chills, and weight loss, Eyes: Negative for injury, gisela pain, redness, and discharge, ENT: Negative for injury, pain, and discharge, Neck: Negative for injury, pain, and swelling, Cardiovascular: Negative for chest pain, palpitations, and edema, Respiratory: Negative for shortness of breath, cough, wheezing, and pleuritic chest pain, Abdomen/GI: Negative for abdominal pain, nausea, vomiting, diarrhea, and constipation, : Negative for injury, bleeding, discharge, and swelling, MS/Extremity: Negative for injury and deformity, Skin: Negative for injury, rash, and discoloration, Psych: Negative for depression, anxiety, suicide ideation, homicidal ideation, and hallucinations, Allergy/Immunology: Negative for hives, rash, and allergies, Endocrine: Negative for neck swelling, polydipsia, polyuria, polyphagia, and marked weight changes, Hematologic/Lymphatic: Negative for swollen nodes, abnormal bleeding, and unusual bruising, 17:11 Back: Positive for decreased range of motion, pain at rest, pain with movement, of the lumbar area and left low back, Exam: 17:11 Constitutional: This is a well developed, well nourished patient who is awake, alert, gisela and in no acute distress. Head/Face: Normocephalic, atraumatic. Eyes: Pupils equal round and reactive to light, extra-ocular motions intact. Lids and lashes normal. Conjunctiva and sclera are non-icteric and not injected. Cornea within normal limits. Periorbital areas with no swelling, redness, or edema. ENT: Nares patent. No nasal discharge, no septal abnormalities noted. Tympanic membranes are normal and external auditory canals are clear. Oropharynx with no redness, swelling, or masses, exudates, or evidence of obstruction, uvula midline. Mucous membranes moist. Neck: Trachea midline, no thyromegaly or masses palpated, and no cervical lymphadenopathy. Supple, full range of motion without nuchal rigidity, or vertebral point tenderness. No Meningismus. Chest/axilla: Normal chest wall appearance and motion. Nontender with no deformity. No lesions are appreciated. Cardiovascular: Regular rate and rhythm with a normal S1 and S2. No gallops, murmurs, or rubs. Normal PMI, no JVD. No pulse deficits. Respiratory: Lungs have equal breath sounds bilaterally, clear to auscultation and percussion. No rales, rhonchi or wheezes noted. No increased work of breathing, no retractions or nasal flaring. Abdomen/GI: Soft, non-tender, with normal bowel sounds. No distension or tympany. No guarding or rebound. No evidence of tenderness throughout. Male : Normal genitalia with no discharge or lesions. Skin: Warm, dry with normal turgor. Normal color with no rashes, no lesions, and no evidence of cellulitis. MS/ Extremity: Pulses equal, no cyanosis. Neurovascular intact. Full, normal range of motion. Neuro: Awake and alert, GCS 15, oriented to person, place, time, and situation. Cranial nerves II-XII grossly intact. Motor strength 5/5 in all extremities. Sensory grossly intact. Cerebellar exam normal. Normal gait. Psych: Awake, alert, with orientation to person, place and time. Behavior, mood, and affect are within normal limits. 17:11 Back: pain, that is mild, that is moderate, ROM is painful, normal spinal alignment noted, CVA tenderness, is absent, muscle spasm, is appreciated in the left low back, left mid back, right mid back and right low back, Vital Signs: 17:20 BP 121 / 73; Pulse 85; Resp 16; Temp 98; Pulse Ox 99% ; bp 20:55 BP 120 / 80; Pulse 49; Resp 15; Pulse Ox 98% ; bp MDM: 17:02 Patient medically screened. [facility] 17:21 Differential diagnosis: arthritis, strain, sciatica, contusion, Herniated disc. Data [facility] reviewed: vital signs, nurses notes, lab test result(s), radiologic studies, CT scan, MRI. Consideration of Admission/Observation Escalation of care including admission/observation considered. I considered the following discharge prescriptions or medication management in the emergency department Medications were administered in the Emergency Department. See MAR. Independent interpretation of the following test(s) in the Emergency Department MRI: My interpretation is mri , ct review. Test considered but Not performed: EKG: no ekg. Historians other than the Patient: Family Member: mother. Care significantly affected by the following chronic conditions: no hx. Counseling: I had a detailed discussion with the patient and/or guardian regarding the historical points, exam findings, and any diagnostic results supporting the discharge/admit diagnosis, lab results, radiology results, the need to transfer to another facility, for higher level of care, [facility] does not immediately have the required specialist. 01/30 17:10 Order name: CBC with Diff; Complete Time: 18:49 [facility] 01/30 17:10 Order name: Comprehensive Metabolic Panel; Complete Time: 18:49 [facility] 01/30 17:10 Order name: MRI Lumbar Spine wo Con; Complete Time: 18:49 [facility] Administered Medications: 18:00 Drug: Ketorolac IVP 30 mg IVP once Route: IVP; Site: right forearm; bp 20:56 Follow up: Response: No adverse reaction bp 18:00 Drug: Decadron - Dexamethasone IVP 10 mg IVP once Route: IVP; Site: right forearm; bp 20:56 Follow up: Response: No adverse reaction bp 18:00 Drug: fentaNYL (PF) IVP 50 mcg IVP once Route: IVP; Site: right forearm; bp 20:56 Follow up: Response: No adverse reaction bp 18:00 Drug: Ondansetron IVP 4 mg IVP once; over 2 minutes Route: IVP; Site: right forearm; bp 20:56 Follow up: Response: No adverse reaction bp 18:00 Drug: NS 0.9% IV 1000 ml IV at 1 bolus Per protocol; 1000 mL bolus Route: IV; Rate: 1 bp bolus; Site: right forearm; 20:57 Follow up: IV Status: Completed infusion; IV Intake: 1000ml bp 18:00 Drug: Diazepam PO 10 mg PO once Route: PO; bp 20:57 Follow up: Response: No adverse reaction bp 20:56 Drug: HYDROmorphone IVP 1 mg IVP once Route: IVP; Site: right forearm; bp 20:57 Follow up: Response: No adverse reaction bp 20:56 Drug: Ondansetron IVP 4 mg IVP once; over 2 minutes Route: IVP; Site: right forearm; bp 20:57 Follow up: Response: No adverse reaction bp Disposition Summary: 01/30/23 17:30 Transfer Ordered Notes: Transfer Location: [facility] gisela Reason: Higher level of care gisela Condition: Fair gisela Problem: new gisela Symptoms: have worsened gisela Accepting Physician: FADUMO MONROY(01/30/23 20:57) bp Diagnosis - Other intervertebral disc displacement, lumbar region - large posterior disc gisela extrusion, with saddle paresthesia Forms: - Medication Reconciliation Form gisela - SBAR form gisela Signatures: Dispatcher [employer] EDMassimo Moreau MD MD cha Peltier, Brian, RN RN bp Corrections: (The following items were deleted from the chart) 20:19 17:30 to [facility] medicine/neuro gisela gisela 20:57 20:19 FADUMO MONROY cha bp
[2023-01-30] MEDS ORDERED: ONDANSETRON 4 MG/2 ML VIAL ONE ×2 (17:42→20:54)
[2023-01-30] MEDS ORDERED: dexAMETHasone 10 MG/ML VIAL ONE (17:42)
[2023-01-30] MEDS ORDERED: KETOROLAC 30 MG/ML INJ ONE (17:42)
[2023-01-30] MEDS ORDERED: DIAZEPAM 5 MG TABLET ONE (17:43)
[2023-01-30] MEDS ORDERED: FENTANYL CITR 100 MCG/2 ML ONE (17:43)
[2023-01-30] MEDS ORDERED: NA CHLORIDE 0.9% 1,000 ML ONE (17:44)
[2023-01-30 17:46] LABS: Absolute Lymphocytes (CBC) 3.8 K/uL (0.7-4.9); Hematocrit 47.3 % (39.6-49.0); MCV 86.4 fL (80-100); MPV 8.8 fL (7.6-11.3); Platelets 338 thou/uL (152-406); RBC Red Blood Cell Count 5.47 M/uL (4.33-5.43)
[2023-01-30 17:55] LABS: Albumin 3.7 g/dL (3.4-5.0); Bilirubin Total 0.9 mg/dL (0.2-1.0); Potassium 3.9 mEq/L (3.5-5.1); Protein, Total 7.4 g/dL (6.4-8.2)
--- NOTE | 2023-01-30 18:27 | RAD REPORT ---
EXAM DESCRIPTION: MRI - Lumbar Spine Wo Con - 01/30/2023 5:59 pm CLINICAL HISTORY: Numbness COMPARISON: January 25, 2023 TECHNIQUE: Sagittal T1, T2 and STIR weighted sequences were obtained. Axial T1 and T2 sequences were obtained through the lumbar disc levels. FINDINGS: L1-2 is unremarkable Mild spondylosis L2-3 Disc bulge with annular fissure L3-4 27 x 12 x 17 millimeter (cc by AP by trans) disc extrusion L4-5 extends superiorly. There is marked c ompression of the thecal sac. The disc extends to the right and left of the thecal sac. Mild spondylosis L5-S1 with disc thinning. No significant abnormal signal within the bones IMPRESSION: Very large L4-5 disc extrusion which extends superiorly
[2023-01-30] MEDS ORDERED: HYDROMORPHONE HCL 1 MG/ML INJ ONE (20:54)
--- NOTE | 2023-01-30 20:58 | ER ---
Nurse's Notes [facility] Name: Anthony Collado Age: 42 yrs Sex: Male : 1980 Arrival Date: 01/30/2023 Time: 16:55 Bed 17 Private MD: Diagnosis: Other intervertebral disc displacement, lumbar region-large posterior disc extrusion, with saddle paresthesia Presentation: 01/30 17:20 Chief complaint: Patient states: CALLED BACK BY MD FOR EXTRUDING DISC WITH PERINEAL bp PARASTHESIAS. Coronavirus screen: At this time, the client does not indicate any symptoms associated with coronavirus-19. Ebola Screen: No symptoms or risks identified at this time. Initial Sepsis Screen: Does the patient meet any 2 criteria? No. Patient's initial sepsis screen is negative. Does the patient have a suspected source of infection? No. Patient's initial sepsis screen is negative. Risk Assessment: Do you want to hurt yourself or someone else? Patient reports no desire to harm self or others. Onset of symptoms was January 30, 2023. 17:20 Method Of Arrival: Ambulatory bp 17:20 Acuity: LAMBERTO 2 bp Triage Assessment: 17:20 General: Appears distressed, Behavior is cooperative, appropriate for age, anxious. bp Pain: Complains of pain in lumbar area. Neuro: Reports numbness in pelvis. Historical: - Allergies: 17:20 No Known Allergies; bp - Home Meds: 17:20 Adderall XR 20 mg Oral cp24 1 cap once daily [Active]; bp - PMHx: 17:20 ADD/ADHD; chronic back pain; Degenerative disc disease; bp - Immunization history:: Adult Immunizations up to date. - Social history:: Smoking status: Patient denies any tobacco usage or history of. - Family history:: not pertinent. Screenin:20 [facility] ED Fall Risk Assessment (Adult) History of falling in the last 3 months, bp including since admission No falls in past 3 months (0 pts). Abuse screen: Denies threats or abuse. Denies injuries from another. Nutritional screening: No deficits noted. Tuberculosis screening: No symptoms or risk factors identified. Assessment: 17:20 Reassessment: SEE TRIAGE NOTE. bp Vital Signs: 17:20 BP 121 / 73; Pulse 85; Resp 16; Temp 98; Pulse Ox 99% ; bp 20:55 BP 120 / 80; Pulse 49; Resp 15; Pulse Ox 98% ; bp ED Course: 16:57 Patient arrived in ED. im 16:57 Jay Krishnan MD is Attending Physician. ec2 16:58 Massimo Ramos MD is Attending Physician. ec2 17:20 Arm band placed on. bp 17:20 Patient has correct armband on for positive identification. Bed in low position. Call bp light in reach. Side rails up X2. Adult w/ patient. 17:20 Inserted saline lock: 20 gauge in right forearm, using aseptic technique. Blood bp collected. 17:40 Ferny Epstein, RN is Primary Nurse. bp 17:50 Triage completed. bp 18:01 MRI Lumbar Spine wo Con In Process Unspecified. EDMS 20:05 Dr. Ramos initiated to [facility] spoke with Betty Wheat. wm 20:10 Pt accepted for transfer to [facility] by Pramod Burr per Betty Wheat. wm 20:55 Provided Education on: N/A. bp 20:55 No provider procedures requiring assistance completed. Patient transferred, IV remains bp in place. Administered Medications: 18:00 Drug: Ketorolac IVP 30 mg IVP once Route: IVP; Site: right forearm; bp 20:56 Follow up: Response: No adverse reaction bp 18:00 Drug: Decadron - Dexamethasone IVP 10 mg IVP once Route: IVP; Site: right forearm; bp 20:56 Follow up: Response: No adverse reaction bp 18:00 Drug: fentaNYL (PF) IVP 50 mcg IVP once Route: IVP; Site: right forearm; bp 20:56 Follow up: Response: No adverse reaction bp 18:00 Drug: Ondansetron IVP 4 mg IVP once; over 2 minutes Route: IVP; Site: right forearm; bp 20:56 Follow up: Response: No adverse reaction bp 18:00 Drug: NS 0.9% IV 1000 ml IV at 1 bolus Per protocol; 1000 mL bolus Route: IV; Rate: 1 bp bolus; Site: right forearm; 20:57 Follow up: IV Status: Completed infusion; IV Intake: 1000ml bp 18:00 Drug: Diazepam PO 10 mg PO once Route: PO; bp 20:57 Follow up: Response: No adverse reaction bp 20:56 Drug: HYDROmorphone IVP 1 mg IVP once Route: IVP; Site: right forearm; bp 20:57 Follow up: Response: No adverse reaction bp 20:56 Drug: Ondansetron IVP 4 mg IVP once; over 2 minutes Route: IVP; Site: right forearm; bp 20:57 Follow up: Response: No adverse reaction bp Medication: 17:20 VIS not applicable for this client. bp Intake: 20:57 IV: 1000ml; Total: 1000ml. bp Outcome: 17:30 ER care complete, transfer ordered by MD. higgins 20:54 Transferred by ground EMS to [facility], Transfer form completed. bp 20:54 Condition: stable 20:54 Instructed on the need for transfer, 20:57 Patient left the ED. bp Signatures: Dispatcher [employer] EDMassimo Moreau MD MD cha Peltier, Brian, RN RN Lilibeth Mcmullen Itzel im Corral, Edwin, MD MD ec2
[2023-01-30 21:07] VITALS: BP 120/80; TEMP 98; O2SAT 98
== END 2023-01-30 20:57 | disposition short-term general hospital (02) ==
LOC: ER 16:55
DX: M51.16 Intervertebral disc disorders with radiculopathy, lumbar region (principal); G83.4 Cauda equina syndrome
CPT/HCPCS: 36415; 72148; 80053; 85025; 96361; 96374; 96375; 99285; J1100; J1170; J2405; J3010; J7030